=== PATIENT | male | born 1965 | race Caucasian/White ===

== ENCOUNTER 2025-01-04 18:04 | Emergency (ER) | payer SELFPAY ==
[2025-01-04 18:37] VITALS: BP 150/90; PULSE 85
[2025-01-04] MEDS: Tetracaine HCl/PF 0.5% 4 ML Bottle EYEBOTH ONE (18:53)
[2025-01-04] MEDS: Diphtheria,Pertussis(Acell),Tetanus Vaccine 0.5 ML Syringe IM ONE (19:31)
[2025-01-04] MEDS: Acetaminophen/oxyCODONE 325-5 MG Tab PO ONE (19:31)
== END 2025-01-04 19:39 | disposition home or self-care (01) ==
LOC: MW.ED 18:04
DX: S05.02XA Injury of conjunctiva and corneal abrasion without foreign body, left eye, initial encounter (principal); Z75.3 Unavailability and inaccessibility of health-care facilities; Z23 Encounter for immunization; X58.XXXA Exposure to other specified factors, initial encounter
CPT/HCPCS: 90471; 90715; 99282; A9270; 99283; J3490